=== PATIENT | female | born 1980 | race Caucasian/White ===

== ENCOUNTER → 2016-11-30 | Outpatient (CLI) | payer OTHER ==
[~2016-11-30] MED LIST: COLACE 100MG C100 MG PO; IBUPROFEN600 MG PO; IBUPROFEN800 MG PO; NORCO 10-325 T1 EACH PO; ULTRAM50 MG PO
[2016-11-30 13:21] LABS: HEMOGLOBIN 15.6 gm/dl (12.3-15.3); RED BLOOD COUNT 4.99 M/UL (4.00-5.10); WHITE BLOOD COUNT 10.3 K/UL (4.5-11.0)
== END ==
LOC: OPSV2 12:30
PROVIDERS: Obstetrics & Gynecology
DX: Z01.812 Encounter for preprocedural laboratory examination (principal); N92.0 Excessive and frequent menstruation with regular cycle
CPT/HCPCS: 81001; 85025

== ENCOUNTER 2016-12-01 06:23 | Day surgery (SDC) | payer OTHER ==
[~2016-12-01] VITALS: Ht 165.1 cm; Wt 70.8 kg
[2016-12-01] MEDS ORDERED: ULTRAM50 MG PO (07:29)
[2016-12-01] MEDS ORDERED: IBUPROFEN800 MG PO (07:29)
[2016-12-02 06:50] LABS: HEMOGLOBIN 13.6 gm/dl (12.3-15.3)
[2016-12-02] MEDS ORDERED: NORCO 10-325 T1 EACH PO (09:20)
[2016-12-02] MEDS ORDERED: COLACE 100MG C100 MG PO (09:21)
[2016-12-02] MEDS ORDERED: IBUPROFEN600 MG PO (09:22)
== END 2016-12-02 07:45 | disposition home or self-care (01) ==
LOC: OR 06:23 → M/S 10:59 → OR 12-02 07:45
PROVIDERS: Obstetrics & Gynecology
PROC: 0UTC4ZZ Resection of Cervix, Percutaneous Endoscopic Approach (ICD-10-PCS; 2016-12-01)
PROC: 0UT74ZZ Resection of Bilateral Fallopian Tubes, Percutaneous Endoscopic Approach (ICD-10-PCS; 2016-12-01)
PROC: 0UT94ZZ Resection of Uterus, Percutaneous Endoscopic Approach (ICD-10-PCS; principal; 2016-12-01 08:00)
DX: N93.9 Abnormal uterine and vaginal bleeding, unspecified (principal); N94.6 Dysmenorrhea, unspecified; F17.210 Nicotine dependence, cigarettes, uncomplicated; Z88.0 Allergy status to penicillin; Z98.51 Tubal ligation status
CPT/HCPCS: 36415; 85014; 85018; J1100; J1580; J1885; J2250; J2405; J2710; J2795; J3010; J7120

== ENCOUNTER 2021-05-25 12:35 | Emergency (ER) | payer OTHER ==
[2021-05-25 13:27] LABS: HEMOGLOBIN 13.9 gm/dl (12.3-15.3); RED BLOOD COUNT 4.3 M/UL (4.00-5.10); WHITE BLOOD COUNT 7.9 K/UL (4.5-11.0)
[2021-05-25 13:59] LABS: BUN/CREATININE RATIO 27 (0-10)
== END 2021-05-25 13:40 | disposition home or self-care (01) ==
LOC: ER1 12:35
PROVIDERS: Physician Assistant
DX: R07.9 Chest pain, unspecified (principal); R06.02 Shortness of breath; F17.210 Nicotine dependence, cigarettes, uncomplicated; Z88.0 Allergy status to penicillin; F17.200 Nicotine dependence, unspecified, uncomplicated
CPT/HCPCS: 80053; 82550; 82553; 83874; 84484; 85025; 93005; 99285

== ENCOUNTER 2021-05-31 06:03 | Emergency (ER) | payer OTHER ==
[2021-05-31 06:58] LABS: RED BLOOD COUNT 5.24 M/UL (4.00-5.10); WHITE BLOOD COUNT 9.3 K/UL (4.5-11.0)
[2021-05-31 07:10] LABS: HEMOGLOBIN 16.8 gm/dl (12.3-15.3)
[2021-05-31 07:32] LABS: BUN/CREATININE RATIO 23 (0-10)
[2021-05-31] MEDS ORDERED: AEROCHAMBER1 EA XX (08:36)
[2021-05-31] MEDS ORDERED: PREDNISONE20 MG PO (08:36)
[2021-05-31] MEDS ORDERED: PROVENTIL HFA6.7 GM INH (08:36)
== END 2021-05-31 09:40 | disposition home or self-care (01) ==
LOC: ER1 06:03
PROVIDERS: Emergency Medicine
DX: R07.89 Other chest pain (principal); I10 Essential (primary) hypertension; F17.210 Nicotine dependence, cigarettes, uncomplicated; Z20.822 Contact with and (suspected) exposure to COVID-19; F17.200 Nicotine dependence, unspecified, uncomplicated; R06.00 Dyspnea, unspecified
CPT/HCPCS: 71045; 80048; 82550; 82553; 83735; 83874; 84484; 85025; 93005; 96374; 99285; J2930; Q0177; Q9967; U0002

== ENCOUNTER → 2021-07-06 | Outpatient (CLI) | payer OTHER ==
[~2021-07-06] MED LIST changes: +AEROCHAMBER1 EA XX; +PREDNISONE20 MG PO; +PROVENTIL HFA6.7 GM INH
== END ==
LOC: HEART 5 13:30
DX: R00.2 Palpitations (principal)